=== PATIENT | male | born 1975 | race Two or more races ===

== ENCOUNTER 2023-05-30 08:27 | Emergency (ER) | payer MEDICAID, OTHER ==
[~2023-05-30] VITALS: Ht 172.7 cm; Wt 80.3 kg
[2023-05-30 09:13] VITALS: BP 149/89; PULSE 82; RESP 18; TEMP 98.1; O2SAT 96
[2023-05-30] MEDS ORDERED: IBUP1TAB5 PO (10:02)
[2023-05-30] MEDS ORDERED: CYCL-839 PO (10:02)
[2023-05-30] MEDS ORDERED: HYDROcodone-ACET 5/325MG TAB PO ONE (10:15)
[2023-05-30] MEDS ORDERED: DexAMETHasone SOD PHOS 10MG/1ML VIAL INJ IM ONE (10:15)
== END 2023-05-30 10:02 | disposition home or self-care (01) ==
LOC: ER 08:27
DX: S46.812A Strain of other muscles, fascia and tendons at shoulder and upper arm level, left arm, initial encounter (principal); M70.32 Other bursitis of elbow, left elbow; M25.512 Pain in left shoulder; X50.0XXA Overexertion from strenuous movement or load, initial encounter; Y93.89 Activity, other specified; Y92.89 Other specified places as the place of occurrence of the external cause; Y99.8 Other external cause status
CPT/HCPCS: 73030; 73080